=== PATIENT | female | born 1980 | race Caucasian/White ===

== ENCOUNTER → 2017-08-17 08:24 | Outpatient (CLI) | payer OTHER, SELFPAY ==
[2017-08-17 13:21] LABS: Absolute Lymphocyte Count 0.97 X10^3/ul (0.83-4.51); Absolute Neutrophil Count 2.4 X10^3/uL (2.0-7.7); Basophil# 0.04 X10^3/uL; Basophil% 1.1 % (0-1); Eosinophil# 0.04 X10^3/uL; Eosinophils% 1.1 % (0-5); Hematocrit 33.1 % (37-47); Hemoglobin 10.6 g/dl (12.0-15.0); Lymphocyte # 0.97 X10^3/ul (4.0); Lymphocyte % 25.5 % (19-41); Mean Corpuscular Hgb 26.5 pg (27.0-32.0); Mean Corpuscular Volume 82.8 fL (81-99); Mean Platelet Vol. 9.3 fl (6.2-12.0); Monocyte# 0.32 X10^3/uL; Monocyte% 8.4 % (0-10); Neutrophil # 2.43 X10^3/uL (2.7-7.7); Neutrophil % 63.9 % (47-70); Platelet Count 347 K/mm3 (150-450); RBC Distribution Width CV 13.7 % (11.6-14.6); White Blood Count 3.8 K/mm3 (4.4-11.0)
[2017-08-17 13:23] LABS: POSITIVE COUNT NO; POSITIVE DIFFERENTIAL NO; POSITIVE MORPHOLOGY NO
[2017-08-17 13:29] LABS: Anion Gap 7 (5-15); BUN 11 mg/dL (7-18); BUN/Creat Ratio 21.3 RATIO (10-20); Calcium,Total 8.5 mg/dL (8.5-10.1); Chloride 105 mmol/L (98-107); Creatinine, Serum 0.52 mg/dL (0.55-1.02); EST Glomerular Filtration Rate 140 mL/min (>60); Est Glom Filt Rate - Afr Amer 170 mL/min (>60); Ferritin 4 ng/mL (8-252); Glucose 87 mg/dL (74-106); Iron 35 ug/dL (50-170); Potassium 3.9 mmol/L (3.5-5.1); Sodium Level 137 mmol/L (136-145); T4 Free Direct 0.88 ng/dL (0.76-1.46); Thyroid Stim Hormone (TSH) 1.79 uIU/mL (0.358-3.74)
[2017-08-17 13:35] LABS: Vitamin B12 336 pg/mL (211-911)
== END ==
PROVIDERS: Visit Provider Family Medicine
DX: D64.9 Anemia, unspecified (principal); R53.83 Other fatigue; R40.0 Somnolence; K90.9 Intestinal malabsorption, unspecified; E55.9 Vitamin D deficiency, unspecified; E53.8 Deficiency of other specified B group vitamins
CPT/HCPCS: 36415; 80048; 82306; 82607; 82728; 83540; 84439; 84443; 85025

== ENCOUNTER → 2017-09-25 22:42 | Outpatient (CLI) | payer OTHER, SELFPAY | PROVIDERS: Family Provider Family Medicine; PCP Family Medicine; Visit Provider Family Medicine | DX: G47.19 Other hypersomnia (principal) | CPT/HCPCS: 95810 ==

== ENCOUNTER → 2018-01-08 20:00 | Outpatient (CLI) | payer OTHER, SELFPAY | PROVIDERS: Family Provider Family Medicine; PCP Family Medicine; Visit Provider Family Medicine | DX: G47.33 Obstructive sleep apnea (adult) (pediatric) (principal) | CPT/HCPCS: 95811 ==

== ENCOUNTER → 2018-09-29 16:49 | Outpatient (CLI) | payer OTHER, SELFPAY ==
[2018-08-12 09:13] VITALS: BMI 47.1
[2018-09-29 17:54] LABS: Absolute Lymphocyte Count 1.44 X10^3/ul (0.83-4.51); Absolute Neutrophil Count 4.5 X10^3/uL (2.0-7.7); Basophil# 0.02 X10^3/uL; Basophil% 0.3 % (0-1); Eosinophil# 0.07 X10^3/uL; Eosinophils% 1.1 % (0-5); Hematocrit 34.9 % (37-47); Hemoglobin 10.9 g/dl (12.0-15.0); Lymphocyte # 1.44 X10^3/ul (4.0); Lymphocyte % 21.9 % (19-41); Mean Corp Hgb Conc 31.2 g/gl (32-36); Mean Corpuscular Hgb 26.2 pg (27.0-32.0); Mean Corpuscular Volume 83.9 fL (81-99); Monocyte# 0.56 X10^3/uL; Monocyte% 8.5 % (0-10); Neutrophil # 4.47 X10^3/uL (2.7-7.7); Neutrophil % 67.9 % (47-70); Platelet Count 409 K/mm3 (150-450); RBC Distribution Width CV 14.4 % (11.6-14.6); RBC Distribution Width SD 41.2 fl (35.1-43.9); Red Blood Count 4.16 M/mm3 (4.2-5.4); White Blood Count 6.6 K/mm3 (4.4-11.0)
[2018-09-29 17:57] LABS: POSITIVE COUNT NO; POSITIVE DIFFERENTIAL NO; POSITIVE MORPHOLOGY NO
[2018-09-29 18:41] LABS: Anion Gap 5 (5-15); BUN 12 mg/dL (7-18); BUN/Creat Ratio 18.8 RATIO (10-20); Calcium,Total 8.5 mg/dL (8.5-10.1); Chloride 106 mmol/L (98-107); Creatinine, Serum 0.64 mg/dL (0.55-1.02); EST Glomerular Filtration Rate 109 mL/min (>60); Est Glom Filt Rate - Afr Amer 132 mL/min (>60); Glucose 76 mg/dL (74-106); Iron 54 ug/dL (50-170); Sodium Level 137 mmol/L (136-145); T4 Free Direct 0.88 ng/dL (0.76-1.46); Thyroid Stim Hormone (TSH) 1.61 uIU/mL (0.358-3.74)
[2018-09-29 18:44] LABS: Vitamin B12 653 pg/mL (211-911); Vitamin D,25 Hydroxy 19.9 ng/mL (29.95-100.01)
== END ==
PROVIDERS: Family Provider Family Medicine; PCP Family Medicine; Visit Provider Family Medicine
DX: F41.9 Anxiety disorder, unspecified (principal); E53.8 Deficiency of other specified B group vitamins; D50.9 Iron deficiency anemia, unspecified; K90.9 Intestinal malabsorption, unspecified; E55.9 Vitamin D deficiency, unspecified
CPT/HCPCS: 36415; 80048; 82306; 82607; 83540; 84439; 84443; 85025

== ENCOUNTER 2018-11-10 16:53 | Outpatient (RCR) | payer OTHER, SELFPAY ==
[2018-08-12 09:13] VITALS: BMI 47.1
== END 2018-11-10 23:59 | disposition home or self-care (01) ==
LOC: NS 16:53
PROVIDERS: Family Provider Family Medicine; PCP Family Medicine; Visit Provider Family Medicine
DX: Z71.3 Dietary counseling and surveillance (principal); E66.01 Morbid (severe) obesity due to excess calories
CPT/HCPCS: 97802

== ENCOUNTER → 2018-12-07 14:00 | Outpatient (CLI) | payer OTHER, SELFPAY ==
[2018-08-12 09:13] VITALS: BMI 47.1
[2018-12-10 12:22] LABS: HPV Reflexed? NOT INDICATED
== END ==
PROVIDERS: Family Provider Family Medicine; PCP Family Medicine; Referring Provider Obstetrics & Gynecology; Visit Provider Obstetrics & Gynecology
DX: Z12.4 Encounter for screening for malignant neoplasm of cervix (principal)
CPT/HCPCS: 88175; G0145

== ENCOUNTER → 2018-12-15 12:18 | Outpatient (CLI) | payer OTHER, SELFPAY ==
[2018-08-12 09:13] VITALS: BMI 47.1
--- NOTE | 2018-12-15 12:21 | BI_ITS ---
MAMMOGRAPHY - BILATERAL SCREENING REASON FOR EXAM: Female, 38 years old. Routine annual screening examination. PERTINENT HISTORY: Grandmother with breast cancer. Aunt with breast cancer. TECHNIQUE: Digital bilateral breast janna (3D mammographic acquisition) in the CC and MLO projections. 2-D mediolateral oblique (MLO) and craniocaudad (CC) views of both breasts were obtained. CAD: Full Field Digital Mammography with Computer Added Detection was performed. COMPARISON: None. Baseline examination. FINDINGS: Breast Composition: There are scattered areas of fibroglandular density. There are no dominant masses or suspicious calcifications. There is a 6.2 mm x 9 mm well-defined nodule in the upper deep lateral aspect of the left breast. This most likely represents a small lymph node or cyst. Correlation with ultrasound is recommended. No other significant abnormalities are identified. BI/SCREEN MAMM (CAD) W/JANNA BILAT IMPRESSION: 6.2 mm x 9 mm well-defined nodule in the upper deep lateral aspect of the left breast as described. Correlation with ultrasound is recommended. ASSESSMENT CATEGORY: BIRADS Category 0: Incomplete. Need additional imaging evaluation. A letter regarding these results will be sent to the patient by the facility within 30 days. Approximately 10% of breast cancers are not detected by mammography. A normal mammogram should not delay biopsy of a clinically suspicious abnormality. [id number] Electronically Signed: Luís Hartman, at 15:13 EDT , Service support ,
== END ==
PROVIDERS: Family Provider Family Medicine; PCP Family Medicine; Referring Provider Obstetrics & Gynecology; Visit Provider Obstetrics & Gynecology
DX: Z12.31 Encounter for screening mammogram for malignant neoplasm of breast (principal); N63.20 Unspecified lump in the left breast, unspecified quadrant; Z80.3 Family history of malignant neoplasm of breast
CPT/HCPCS: 77063; 77067

== ENCOUNTER → 2018-12-17 09:21 | Outpatient (CLI) | payer OTHER, SELFPAY ==
[2018-08-12 09:13] VITALS: BMI 47.1
--- NOTE | 2018-12-17 09:36 | US_ITS ---
STUDY: ULTRASOUND BREAST - LEFT REASON FOR EXAM: Female, 38 years old. Abnormal screening mammogram. Left breast nodule. TECHNIQUE: Axial and longitudinal images of the LEFT breast were performed with a high resolution ultrasound transducer. COMPARISON: Comparison is made with prior mammogram dated December 15, 2018. FINDINGS: LEFT Breast: The mammographic abnormality corresponds to an 8 mm x 8 mm x 7 mm well-defined hypoechoic lesion with a central area of increased echotexture suggestive of a lymph node. This is at the 1:00 position of the breast at 7 cm from the nipple. US/Breast Limited Unilateral IMPRESSION: The mammographic abnormality corresponds to a 8 mm x 8 mm x 7 mm well-defined hypoechoic nodule as described. This most likely represents a small lymph node. Routine mammographic follow-up is recommended. ASSESSMENT CATEGORY: BIRADS Category 2: Benign. A letter regarding these results will be sent to the patient by the facility within 30 days. Electronically Signed: Luís Hartman, at 10:58 EDT , Service support ,
== END ==
PROVIDERS: Family Provider Family Medicine; PCP Family Medicine; Referring Provider Obstetrics & Gynecology; Visit Provider Obstetrics & Gynecology
DX: N63.20 Unspecified lump in the left breast, unspecified quadrant (principal)
CPT/HCPCS: 76642

== ENCOUNTER 2018-12-24 19:38 | Emergency (ER) | payer OTHER, SELFPAY ==
[2018-08-12 09:13] VITALS: BMI 47.1
[2018-12-24 19:39] VITALS: BP 175/102; PULSE 68; RESP 18; TEMP 36.7; O2SAT 100; BMI 47.1
--- NOTE | 2018-12-24 19:51 | ED.DCSUM_ITS ---
- ER Visit Summary Date of Service: 12/24/18 Chief Complaint: Tooth pain History of Present Illness: The patient is a 38 F who presents with tooth pain. She states it started earlier today. In the left upper portion of her mouth. Ice and laying down made it worse. She tried ibuprofen with no relief. No fevers. She has a history of a gastric bypass and should not take NSAIDs. Physical Examination: Vital signs reviewed. Mouth exam reveals diffuse dental decay. She has multiple cavities. Tenderness to tooth #12. No gingival abscess Test Results: [] Emergency Department Course and Treatment: Patient will be treated with penicillin. I do not feel she needs narcotics. She will try Tylenol and topical treatments [id number]. She has a follow-up with a dentist next week Treatment Plan: [] Disposition: Discharge Impression: Odontalgia This note was generated with [employer] dictation software. It may contain incorrect words, spelling, and punctuation that were not noted in review of the chart prior to signing ED Disposition - Plan for ED Patient: Referrals: Iglesia Peterson MD [Primary Care Provider] -
--- NOTE | 2018-12-24 19:51 | ED.DEP ---
ED Disposition - Plan for ED Patient: Disposition: Home or Assisted Living Instructions: ED Tooth Pain Prescriptions: Penicillin V Potassium 500 mg PO 4X/DAY #28 tab Referrals: Iglesia Peterson MD [Primary Care Provider] -
[2018-12-24] MEDS: Penicillin Vk 250 MG Tablet 500 MG PO (19:58)
== END 2018-12-24 20:05 | disposition home or self-care (01) ==
LOC: ED 19:57
PROVIDERS: Emergency Provider Emergency Medicine; Family Provider Family Medicine; PCP Family Medicine
DX: K08.89 Other specified disorders of teeth and supporting structures (principal); K02.9 Dental caries, unspecified; Z98.84 Bariatric surgery status
CPT/HCPCS: 99283

== ENCOUNTER → 2019-02-07 11:35 | Outpatient (CLI) | payer OTHER, SELFPAY ==
[2019-02-07 12:25] LABS: Absolute Neutrophil Count 4.3 X10^3/uL (2.0-7.7); Basophil# 0.05 X10^3/uL; Basophil% 0.8 % (0-1); Eosinophil# 0.05 X10^3/uL; Eosinophils% 0.8 % (0-5); Hematocrit 34.9 % (37-47); Hemoglobin 11.5 g/dL (12.0-15.0); Lymphocyte % 20.9 % (19-41); Mean Corpuscular Hgb 27.4 pg (27.0-32.0); Mean Corpuscular Volume 83.3 fL (81-99); Mean Platelet Vol. 9.2 fl (6.2-12.0); Monocyte# 0.44 X10^3/uL; Monocyte% 7.1 % (0-10); NRBC Flagged by Analyzer 0 % (0-5); Neutrophil # 4.34 X10^3/uL (2.7-7.7); Neutrophil % 69.9 % (47-70); Platelet Count 347 K/mm3 (150-450); RBC Distribution Width CV 13.2 % (11.6-14.6); RBC Distribution Width SD 39.4 fl (35.1-43.9); Red Blood Count 4.19 M/mm3 (4.2-5.4); White Blood Count 6.2 K/mm3 (4.4-11.0)
[2019-02-07 12:52] LABS: Ferritin 5 ng/mL (8-252); Iron 54 ug/dL (50-170)
[2019-02-07 22:05] LABS: Vitamin D,25 Hydroxy 19.4 ng/mL (29.95-100.01)
== END ==
PROVIDERS: Family Provider Family Medicine; PCP Family Medicine; Visit Provider Family Medicine
DX: D50.9 Iron deficiency anemia, unspecified (principal); E55.9 Vitamin D deficiency, unspecified
CPT/HCPCS: 36415; 82306; 82728; 83540; 85025

== ENCOUNTER → 2019-04-15 10:40 | Outpatient (CLI) | payer OTHER, SELFPAY ==
[2019-04-15 12:44] LABS: Absolute Neutrophil Count 3.8 X10^3/uL (2.0-7.7); Basophil# 0.03 X10^3/uL; Basophil% 0.6 % (0-1); Eosinophil# 0.04 X10^3/uL; Eosinophils% 0.7 % (0-5); Hematocrit 34.4 % (37-47); Hemoglobin 11.1 g/dL (12.0-15.0); Lymphocyte % 20.2 % (19-41); Mean Corp Hgb Conc 32.3 g/dL (32-36); Mean Corpuscular Hgb 26.9 pg (27.0-32.0); Mean Corpuscular Volume 83.5 fL (81-99); Mean Platelet Vol. 9.3 fl (6.2-12.0); Monocyte# 0.49 X10^3/uL; NRBC Flagged by Analyzer 0 % (0-5); Neutrophil # 3.77 X10^3/uL (2.7-7.7); Neutrophil % 69.1 % (47-70); Platelet Count 388 K/mm3 (150-450); RBC Distribution Width CV 12.5 % (11.6-14.6); RBC Distribution Width SD 38.3 fl (35.1-43.9); Red Blood Count 4.12 M/mm3 (4.2-5.4); White Blood Count 5.5 K/mm3 (4.4-11.0)
[2019-04-15 13:01] LABS: Vitamin D,25 Hydroxy 19.1 ng/mL (29.95-100.01)
== END ==
PROVIDERS: Family Provider Family Medicine; PCP Family Medicine; Visit Provider Family Medicine
DX: D50.9 Iron deficiency anemia, unspecified (principal); E55.9 Vitamin D deficiency, unspecified
CPT/HCPCS: 36415; 82306; 85025

== ENCOUNTER 2024-04-13 12:43 | Emergency (ER) | payer OTHER, SELFPAY ==
[2024-04-13 12:44] VITALS: BP 189/113; PULSE 88; RESP 16; TEMP 36.4; O2SAT 98; BMI 49.4
--- NOTE | 2024-04-13 12:49 | CT_ITS ---
STUDY: CT BRAIN WITHOUT CONTRAST REASON FOR EXAM: Female, 43 years old. Headache, facial numbness, blurred vision X2 weeks RADIATION DOSAGE (If Supplied By Facility): CTDIvol = ( 44.99 ) mGy, DLP = ( 796.11 ) mGycm TECHNIQUE: Transaxial CT imaging of the brain was performed without administration of intravenous contrast material. Individualized dose optimization techniques were used for this CT. COMPARISON: No relevant priors. FINDINGS: Normal soft tissue structures. Normal calvarium. Normal size ventricles and extra-axial spaces for the patient''s age. Normal white matter tracts of the cerebral hemispheres. Normal basal ganglia and thalami. Normal brainstem. Normal cerebellum. There is no intracranial hemorrhage. There are no findings of an acute ischemic infarction. Normal visualized paranasal sinuses. CT/Brain/Head without Contrast IMPRESSION: Normal unenhanced CT scan of the brain. Electronically Signed: Luís Hartman MD at 13:28 EDT ,
--- NOTE | 2024-04-13 12:51 | ED.RN ---
patient case discussed with Dr. Chen. At this time concern for stroke ruled out patient outside T[facility] window. CT ordered at this time
--- NOTE | 2024-04-13 13:07 | EKG12_ITS ---
Test Reason : Blood Pressure : / mmHG Vent. Rate : 073 BPM Atrial Rate : 073 BPM P-R Int : 168 ms QRS Dur : 098 ms QT Int : 410 ms P-R-T Axes : 043 024 011 degrees QTc Int : 451 ms Normal sinus rhythm Nonspecific T wave abnormality Abnormal ECG When compared with ECG of 01-APR-2017 17:28, No significant change was found Confirmed by RAYRAY BRYANT, BRYON ([id number]), digital editor BIN STEINBERG ([id number]) on 04/19/2024 11:30:17 AM Referred By: Confirmed By:BRYON SEO MD
[2024-04-13 13:40] LABS: Absolute Lymphocyte Count 1.68 X10^3/uL (0.83-4.51); Absolute Neutrophil Count 4.3 X10^3/uL (2.0-7.7); Anion Gap 6 (5-15); BUN 8 mg/dL (7-18); BUN/Creat Ratio 11.3 RATIO (10-20); Basophil# 0.04 X10^3/uL; Basophil% 0.6 % (0-1); Calcium,Total 9.1 mg/dL (8.5-10.1); Chloride 106 mmol/L (98-107); Creatinine, Serum 0.71 mg/dL (0.55-1.02); EST Glomerular Filtration Rate 94 mL/min (>60); Eosinophil# 0.07 X10^3/uL; Eosinophils% 1.1 % (0-5); Est Glom Filt Rate - Afr Amer 114 mL/min (>60); Estimated Creatinine Clearance 153.63 ml/min; Glucose 96 mg/dL (74-106); Hematocrit 31.2 % (37-47); Hemoglobin 8.8 g/dL (12.0-15.0); Lymphocyte # 1.68 X10^3/ul (0.83-4.51); Lymphocyte % 25.8 % (19-41); Mean Corp Hgb Conc 28.2 g/dL (32-36); Mean Corpuscular Hgb 19.2 pg (27.0-32.0); Mean Corpuscular Volume 68.1 fL (81-99); Mean Platelet Vol. 8.5 fl (6.2-12.0); Monocyte# 0.37 X10^3/uL; Monocyte% 5.7 % (0-10); NRBC Flagged by Analyzer 0 % (0-5); Neutrophil # 4.32 X10^3/uL (2.7-7.7); Neutrophil % 66.5 % (47-70); Platelet Count 389 K/mm3 (150-450); Potassium 4.3 mmol/L (3.5-5.1); Red Blood Count 4.58 M/mm3 (4.2-5.4); Sodium Level 137 mmol/L (136-145); White Blood Count 6.5 K/mm3 (4.4-11.0)
[2024-04-13 13:44] VITALS: BP 134/100; PULSE 75; RESP 14; O2SAT 99
[2024-04-13 13:45] LABS: Partial Thromboplast Time 27.4 Seconds (24.1-36.2); Prothrombin Time (Protime)PT. 13.2 SECONDS (11.7-14.9)
--- NOTE | 2024-04-13 13:53 | RAD_ITS ---
STUDY: X-RAY CHEST REASON FOR EXAM: Female, 43 years old. Stroke . Headaches. Facial numbness and blurred vision. TECHNIQUE: Single AP portable view of the chest. COMPARISON: Comparison is made with prior study dated April 01, 2017. FINDINGS: EKG electrodes are seen. The lungs are clear and expanded. There is no demonstrated pleural abnormality. There is borderline cardiomegaly. Normal mediastinum and miguel. Normal visualized pulmonary arteries. Normal visualized aortic arch and descending thoracic aorta. Normal visualized thoracic spine. Normal visualized ribs, clavicles, and shoulders. There is no demonstrated abnormality of the visualized soft tissue structures of the upper abdomen. RAD/Chest 1 View (Portable) IMPRESSION: Borderline cardiomegaly. The lungs are clear. Electronically Signed: Luís Hartman MD at 14:03 EDT ,
[2024-04-13 14:00] VITALS: BP 140/80; PULSE 75; RESP 18; O2SAT 98
--- NOTE | 2024-04-13 14:49 | MRI_ITS ---
STUDY: MRI BRAIN WITHOUT CONTRAST REASON FOR EXAM: Female, 43 years old. headache, facial paresthesias TECHNIQUE: Standardized multiplanar fat and water weighted pulse sequences were obtained. COMPARISON: CT of the brain April 13, 2024 FINDINGS: Normal size of the ventricles and extra-axial spaces for the patient''s age. Normal white matter tracts of the supratentorial brain. Normal bilateral basal ganglia. Normal thalami. There is no extra-axial fluid accumulation. Normal flow voids within the major intracranial circulation suggesting patency by spin echo criteria. Normal sella turcica, pituitary gland, infundibular stalk, optic chiasm and hypothalamus. Normal tectal plate and pineal gland. Normal midbrain, corina and medulla. Normal cerebellum. Normal basal cisterns. Normal bilateral temporal bones. Normal bilateral internal auditory canals. No demonstrated orbital abnormality, within the constraints of a routine brain study. Minor mucosal thickening of the bilateral maxillary sinuses. Normal calvarium and skull base. Normal visualized soft tissue structures. Normal visualized upper cervical spine. MRI/Brain without Contrast IMPRESSION: Normal unenhanced MRI of the brain. Minor bilateral maxillary sinusitis likely chronic Electronically Signed: Todd Horowitz MD at 16:09 EDT ,
[2024-04-13 15:00] VITALS: BP 133/80; O2SAT 99
--- NOTE | 2024-04-13 15:36 | EX.ED.DYSGE1 ---
HPI <Dr. Keith Abdi DO - Last Filed: 04/13/24 16:03> History of Present Illness Chief Complaint: Neuro S/Sx Informant: patient and spouse/S.O. Narrative Narrative: Intermittent posterior headaches for the past 2 weeks. Has been consistent. Yesterday reported trouble processing information and tingling around her lips and her upper mouth. Denies trouble speaking or any hemiparesis. Denies history of similar. She does report increasing stress. States symptoms are worse with bright lights. Using Aleve and ibuprofen with no relief. Denies any head trauma. Denies any stroke history. Denies family history of multiple sclerosis. Prior similar symptoms: No PFSH <Dr. Keith Abdi DO - Last Filed: 04/13/24 16:03> PFSH Medical History Asthmatic bronchitis with exacerbation Bilateral headaches Environmental allergies Daytime hypersomnia Anxiety Morbid obesity ADD (attention deficit disorder) Home Medications ?Medication ?Instructions ?Recorded ?Last Taken ?Type venlafaxine 75 mg capsule,extended 75 mg PO DAILY 10/17/16 Unknown History release 24 hr (Effexor XR) azithromycin 250 mg tablet 250 mg PO QDAY #6 tabs 05/17/23 Unknown Rx methylprednisolone 4 mg tablets in See Rx Instructions PO PER PKG DIR 05/17/23 Unknown Rx a dose pack (Medrol (Rivera)) #21 tabs Allergy/AdvReac Type Severity Reaction Status Date / Time bacitracin Allergy Rash Verified 04/13/24 12:44 Family History Grandmother Breast cancer Other Asthma CAD (coronary artery disease) Hypertension Surgical History History of gastric bypass History of appendectomy Social History number of children: 4 current occupation: homemaker Smoking Status: Former smoker second hand exposure: No alcohol intake: never substance use type: does not use caffeine: Yes ROS <Dr. Keith Abdi DO - Last Filed: 04/13/24 16:03> ROS ED Constitutional Constitutional ED: Denies chills, fever(s) or sweats Eyes Eyes: Denies change in vision ENT ENT ED: Denies dysphagia or sore throat Cardiovascular Cardiovascular: Denies chest pain, leg edema, palpitations or racing heartbeat Respiratory/Chest Respiratory/Chest: Denies cough, dyspnea or dyspnea on exertion Gastrointestinal Gastrointestinal: Denies abdominal pain, diarrhea, nausea or vomiting Genitourinary Genitourinary ED: Denies dysuria, hematuria or urinary frequency Musculoskeletal Musculoskeletal: Denies back pain, extremity pain or neck pain Integumentary Denies rash or wounds Neurologic Neurologic: Reports headache(s) and paresthesias; Denies weakness EXAM <Dr. Keith Abdi, DO - Last Filed: 04/13/24 16:03> Physical Exam Const Vital Signs: 04/13/24 12:44 04/13/24 13:07 04/13/24 13:44 Temperature 97.5 F L Temperature Source Temporal Pulse Rate 88 75 Respiratory Rate 16 14 Blood Pressure 189/113 H 134/100 H Blood Pressure Mean 138 111 Pulse Ox 98 99 Oxygen Delivery Method Room Air Room Air Room Air 04/13/24 14:00 04/13/24 15:00 Temperature Temperature Source Pulse Rate 75 Respiratory Rate 18 Blood Pressure 140/80 H 133/80 H Blood Pressure Mean 100 97 Pulse Ox 98 99 Oxygen Delivery Method Room Air Room Air Positive well nourished and well developed General Appearance ED: well developed and NAD HEENT Reports moist mucous membranes normocephalic and atraumatic Eyes EOMs intact bilaterally and conjunctivae normal General Eye ED: Yes normal appearance of both eyes Neck no lymphadenopathy and supple Neck Narrative: No meningismus General: Negative for tenderness Chest Wall Chest: Negative for tenderness Resp normal respiratory effort and normal air movement Effort and Inspection: symmetric chest movement; Negative for respiratory distress Cardio regular rate, regular rhythm and no murmurs Peripheral Pulses: pulses 2+ throughout GI normal to inspection, nondistended, normoactive bowel sounds and non-tender Palpation: Negative for guarding or rebound tenderness present Back/Spine no CVA tenderness and no thoracic nor lumbar tenderness Extremity normal to inspection General Extremety ED: Negative for edema or tenderness General Extremity: Negative for edema Neuro oriented x3, CN's II-XII intact bilaterally and no sensory deficits noted Neuro Narrative: NIH of 0, cerebellar intact upper and lower. No focal neurological deficits. Sensorium / Orientation: awake and alert Skin no rashes or lesions noted and no wounds <Dr. Jose Alberto Clark, DO - Last Filed: 04/13/24 16:36> Physical Exam Const Vital Signs: 04/13/24 12:44 04/13/24 13:07 04/13/24 13:44 Temperature 97.5 F L Temperature Source Temporal Pulse Rate 88 75 Respiratory Rate 16 14 Blood Pressure 189/113 H 134/100 H Blood Pressure Mean 138 111 Pulse Ox 98 99 Oxygen Delivery Method Room Air Room Air Room Air 04/13/24 14:00 04/13/24 15:00 Temperature Temperature Source Pulse Rate 75 Respiratory Rate 18 Blood Pressure 140/80 H 133/80 H Blood Pressure Mean 100 97 Pulse Ox 98 99 Oxygen Delivery Method Room Air Room Air MDM <Dr. Keith Abdi, DO - Last Filed: 04/13/24 16:03> MDM MDM Narrative Medical decision making narrative: Interventions / MDM: Differential diagnosis: Complex migraine Diagnosis considered but do not suspect: Intracranial hemorrhage however CT negative. My EKG interpretation: Sinus rate of 73, no ST or T wave changes. Imaging independently reviewed and interpreted by myself: CT brain: No acute process. 1 view chest x-ray: No acute process. Borderline enlarged cardiac silhouette. Also read by radiology. External documents reviewed: N/A Test considered but not ordered:N/A ED course: Patient presenting with has not symptom new symptoms reported paresthesias around both lips along with reported difficulty processing information yesterday. NIH of 0. No focal neurologic deficits. CT brain negative labs are stable EKG normal. She has no symptoms Of similar in the past. She has had increasing stress. Concerns for complex migraines. Initial order for migraine cocktail to help with symptoms. However per nursing patient declined this. 1400: Reevaluated patient she states she did not want the side effects with sleepiness. She has no neurodeficit on exam no family history of multiple sclerosis. With new onset symptoms, discussed ordering MRI brain with and without contrast for further rule outs. She agrees. 1530: Patient currently over MRI department for her image studies. Will await results. If negative have patient follow-up with neurology as an outpatient. 1600: Nursing reported to me patient was in MRI they had the noncontrast MRI, planning for contrast MRI however the IV blew. Nursing placed IV however patient declining contrast MRI. Patient be signed out to oncoming physician for final disposition. Re-evaluation: stable Disposition discussed with patient/family/significant other: Patient and significant other Case discussed with consulting clinician: N/A This note was generated with [employer] dictation software. It may contain incorrect words, spelling, and punctuation that were not noted in checking the note before signing. Lab Data Attestation: I reviewed the patient's lab results. Labs: Laboratory Results - last 24 hr 04/13/24 13:20 WBC 6.5 RBC 4.58 Hgb 8.8 L Hct 31.2 L MCV 68.1 L MCH 19.2 L MCHC 28.2 L RDW Std Deviation 41.0 RDW Coeff of Fahad 17.0 H Plt Count 389 MPV 8.5 Immature Gran % (Auto) 0.300 Neut % (Auto) 66.5 Lymph % (Auto) 25.8 [place] % (Auto) 5.7 Eos % (Auto) 1.1 Baso % (Auto) 0.6 Absolute Neuts (auto) 4.3 Absolute Lymphs (auto) 1.68 Nucleated RBC % 0 PT 13.2 INR 1.0 APTT 27.4 Sodium 137 Potassium 4.3 Chloride 106 Carbon Dioxide 25.0 Anion Gap 6 BUN 8 Creatinine 0.71 Estim Creat Clear Calc 153.63 Est GFR (MDRD) Af Amer 114 Est GFR (MDRD) Non-Af 94 BUN/Creatinine Ratio 11.3 Glucose 96 Calcium 9.1 Radiography Diagnostic Testing: Clinical Impression(s) from Imaging Studies Brain CT 04/13/24 12:49 IMPRESSION: Normal unenhanced CT scan of the brain. Electronically Signed: Luís Hartman MD at 13:28 EDT , Chest X-Ray 04/13/24 13:53 IMPRESSION: Borderline cardiomegaly. The lungs are clear. Electronically Signed: Luís Hartman MD at 14:03 EDT , Brain MRI 04/13/24 14:49 IMPRESSION: Normal unenhanced MRI of the brain. Minor bilateral maxillary sinusitis likely chronic Electronically Signed: Todd Horowitz MD at 16:09 EDT , <Dr. Jose Alberto Clark, DO - Last Filed: 04/13/24 16:36> MDM MDM Narrative Medical decision making narrative: Interventions / MDM: Differential diagnosis: Complex migraine Diagnosis considered but do not suspect: Intracranial hemorrhage however CT negative. My EKG interpretation: Sinus rate of 73, no ST or T wave changes. Imaging independently reviewed and interpreted by myself: CT brain: No acute process. 1 view chest x-ray: No acute process. Borderline enlarged cardiac silhouette. Also read by radiology. External documents reviewed: N/A Test considered but not ordered:N/A ED course: Patient presenting with has not symptom new symptoms reported paresthesias around both lips along with reported difficulty processing information yesterday. NIH of 0. No focal neurologic deficits. CT brain negative labs are stable EKG normal. She has no symptoms Of similar in the past. She has had increasing stress. Concerns for complex migraines. Initial order for migraine cocktail to help with symptoms. However per nursing patient declined this. 1400: Reevaluated patient she states she did not want the side effects with sleepiness. She has no neurodeficit on exam no family history of multiple sclerosis. With new onset symptoms, discussed ordering MRI brain with and without contrast for further rule outs. She agrees. 1530: Patient currently over MRI department for her image studies. Will await results. If negative have patient follow-up with neurology as an outpatient. 1600: Nursing reported to me patient was in MRI they had the noncontrast MRI, planning for contrast MRI however the IV blew. Nursing placed IV however patient declining contrast MRI. Patient be signed out to oncoming physician for final disposition. Re-evaluation: stable Disposition discussed with patient/family/significant other: Patient and significant other Case discussed with consulting clinician: N/A This note was generated with [employer] software. It may contain incorrect words, spelling, and punctuation that were not noted in checking the note before signing. Patient was turned over to me by Dr. [email or web address]@pending MRI Brief history: 43-year-old female presents history as above Physical exam: Alert and oriented x3, neuro exam at baseline, cranial nerves II through XII are intact. No pain with extraocular muscle movement. There is negative test of skew. 5 of 5 strength in upper and lower extremities in flexion extension. Intact sensation to light touch in upper and lower extremity dermatomes. No truncal or extremity ataxia. No dysdiadochokinesia. Normal gait. 2+ reflexes in upper and lower extremities. No meningeal signs. Negative Babinski. NIH of 0. Labs and images reviewed (if obtained): MRI was negative CBC with no leukocytosis, noted anemia, no thrombocytopenia BMP without evidence of significant electrolyte abnormalities, no anion gap, no acute kidney injury. No coagulopathy Noncon CT of the brain was negative Chest x-ray was also read as negative MDM/plan: Discharge with close neurology follow-up strict return precautions were discussed Medical screening exam was undertaken within a reasonable amount of clinical certainty no emergent medical conditions been identified. The patient's appropriate discharge home Lab Data Labs: Laboratory Results - last 24 hr 04/13/24 13:20 WBC 6.5 RBC 4.58 Hgb 8.8 L Hct 31.2 L MCV 68.1 L MCH 19.2 L MCHC 28.2 L RDW Std Deviation 41.0 RDW Coeff of Fahad 17.0 H Plt Count 389 MPV 8.5 Immature Gran % (Auto) 0.300 Neut % (Auto) 66.5 Lymph % (Auto) 25.8 [place] % (Auto) 5.7 Eos % (Auto) 1.1 Baso % (Auto) 0.6 Absolute Neuts (auto) 4.3 Absolute Lymphs (auto) 1.68 Nucleated RBC % 0 PT 13.2 INR 1.0 APTT 27.4 Sodium 137 Potassium 4.3 Chloride 106 Carbon Dioxide 25.0 Anion Gap 6 BUN 8 Creatinine 0.71 Estim Creat Clear Calc 153.63 Est GFR (MDRD) Af Amer 114 Est GFR (MDRD) Non-Af 94 BUN/Creatinine Ratio 11.3 Glucose 96 Calcium 9.1 Radiography Diagnostic Testing: Clinical Impression(s) from Imaging Studies Brain CT 04/13/24 12:49 IMPRESSION: Normal unenhanced CT scan of the brain. Electronically Signed: Luís Hartman MD at 13:28 EDT , Chest X-Ray 04/13/24 13:53 IMPRESSION: Borderline cardiomegaly. The lungs are clear. Electronically Signed: Luís Hartman MD at 14:03 EDT , Brain MRI 04/13/24 14:49 IMPRESSION: Normal unenhanced MRI of the brain. Minor bilateral maxillary sinusitis likely chronic Electronically Signed: Todd Horowitz MD at 16:09 EDT , Discharge Plan Triage Chief Complaint: Neuro S/Sx ED Provider: Jose Alberto Clark Dx/Rx/DC Orders Clinical Impression: Migraine headache, Facial paresthesia Instructions: Self-Care for Headaches, Migraine Triggers Prescriptions: No Action azithromycin 250 mg tablet 250 mg PO QDAY Qty: 6 0RF Rx Instructions: 2 tablets today, then 1 tablet daily on days 2 through 5 methylprednisolone [Medrol (Rivera)] 4 mg tablets,dose pack See Rx Instructions PO PER PKG DIR Qty: 21 0RF Rx Instructions: PO PER PKG DIR venlafaxine [Effexor XR] 75 MG capsule,extended release 24hr 75 mg PO DAILY Primary Care Provider: Care Physician,No Primary Referrals: Heri Edgar MD [Non-Staff -Ordering Privileges] - 1-2 Weeks Care Physician,No Primary [Primary Care Provider] - Activity Restrictions/Additional Instructions: CT brain negative. MRI of the brain with and without contrast in the ED. Thank you for trusting us with your care today! Please take Tylenol (2 pills, 650 mg), ibuprofen (2 pills, 400 mg) every 6 hours as needed for pain and fever control. Please return to the emergency department if your symptoms change or worsen. Please follow with your primary care physician for further outpatient evaluation and management. Print Language: Pakistani Disposition Disposition: Home, Self Care
[2024-04-13 17:14] VITALS: BMI 49.2
== END 2024-04-13 17:17 | disposition home or self-care (01) ==
PROVIDERS: Emergency Provider Emergency Medicine; Visit Provider Emergency Medicine
DX: G43.909 Migraine, unspecified, not intractable, without status migrainosus (principal); R20.2 Paresthesia of skin; Z87.891 Personal history of nicotine dependence
CPT/HCPCS: 70450; 70551; 71045; 80048; 85025; 85610; 85730; 93005; 99284; A4216